=== PATIENT | male | born 1985 | race Hispanic/Latino ===

== ENCOUNTER 2021-02-07 08:23 | Inpatient (IN) | payer SELFPAY ==
[~2021-02-07] VITALS: Ht 162.6 cm; Wt 80.7 kg
[2021-02-07] MEDS ORDERED: SODIUM CHLORIDE 0.9% 1000ML 1,000 ML IV STA (08:50)
[2021-02-07] MEDS ORDERED: ZINC SULFATE 50 MG CAP PO SCH (09:00)
[2021-02-07] MEDS ORDERED: DEXAMETHASONE SOD PHOS 10 MG/1 ML VIAL IV SCH (09:00)
[2021-02-07] MEDS ORDERED: ASCORBIC ACID 500 MG TAB PO SCH (09:00)
[2021-02-07] MEDS ORDERED: CEFTRIAXONE 1 GM in SODIUM CHLORIDE 0.9% 50ML 50 ML IV SCH (09:00)
[2021-02-07 09:03] LABS: BASOPHILS % 0.2 % (0.0-1.0); EOSINOPHILS % 0.2 % (0.0-6.0); HEMATOCRIT 44.5 % (38.2-49.6); HEMOGLOBIN 15.4 g/dL (14.0-18.0); LYMPHOCYTES # (AUTO) 0.7 (1.0-3.2); LYMPHOCYTES % 10.8 % (18.0-39.1); MEAN CORPUSCULAR HEMOGLOBIN 29.6 pg (28-32); MEAN CORPUSCULAR HGB CONC 34.6 g/dL (31-35); MEAN CORPUSCULAR VOLUME 85.4 fL (81-99); MONOCYTES # (AUTO) 0.1 (0.2-0.8); MONOCYTES % 2.1 % (4.4-11.3); NEUTROPHILS # (AUTO) 5.3 (2.1-6.9); PLATELET COUNT 337 x10e3/uL (140-360); RED BLOOD COUNT 5.21 x10e6/uL (4.3-5.7); RED CELL DISTRIBUTION WIDTH 11.9 % (11.7-14.4)
[2021-02-07 09:21] LABS: ALBUMIN 3.3 g/dL (3.5-5.0); ALBUMIN/GLOBULIN RATIO 0.7 (0.8-2.0); ANION GAP 19.5 mmol/L (8-16); CALCIUM 9.3 mg/dL (8.4-10.2); CREATININE, SERUM 0.95 mg/dL (0.72-1.25); POTASSIUM 3.5 mmol/L (3.5-5.1)
[2021-02-07] MEDS: DEXAMETHASONE SOD PHOS 10 MG/1 ML VIAL IV SCH (09:56)
[2021-02-07] MEDS ORDERED: SODIUM CHLORIDE 0.9% 50ML 50 ML ONE ×2 (09:56→12:07)
[2021-02-07] MEDS: ZINC SULFATE 50 MG CAP PO SCH (09:56)
[2021-02-07] MEDS: CEFTRIAXONE 1 GM in SODIUM CHLORIDE 0.9% 50ML 50 ML IV SCH (09:56)
[2021-02-07] MEDS: ASCORBIC ACID 500 MG TAB PO SCH ×2 (09:56→18:08)
[2021-02-07 10:03] LABS: CREATINE KINASE MB 0.6 ng/mL (0-5.0)
[2021-02-07] MEDS ORDERED: DOCUSATE SODIUM 100 MG CAP PO PRN (11:45)
[2021-02-07] MEDS ORDERED: GUAIFENESIN/DEXTROMETHORPHAN LIQD 5 ML UDC NG PRN (11:45)
[2021-02-07] MEDS ORDERED: REMDESIVIR 200MG 200 MG IV ONE (12:00)
[2021-02-07] MEDS ORDERED: IOPAMIDOL 370 MG/ML 200 ML INFUS..BTL INJ ONE (12:07)
[2021-02-07 12:31] LABS: CHOL/HDL RATIO 5.4 (3.9-4.7)
[2021-02-07] MEDS ORDERED: CASIRIVIMAB/IMDEVIMAB 10 ML in SODIUM CHLORIDE 0.9% 100 ML IV ONE (13:30)
[2021-02-07] MEDS: ENOXAPARIN SOD INJ 40 MG/0.4 ML SYR SC SCH (18:08)
[2021-02-07] MEDS: BENZONATATE 100 MG CAP PO SCH ×2 (18:08→21:28)
[2021-02-07] MEDS ORDERED: ZOLPIDEM TARTRATE 5 MG TAB PO PRN (21:00)
[2021-02-08 05:42] LABS: BASOPHILS % 0.1 % (0.0-1.0); HEMATOCRIT 39.2 % (38.2-49.6); HEMOGLOBIN 13.7 g/dL (14.0-18.0); LYMPHOCYTES # (AUTO) 0.7 (1.0-3.2); LYMPHOCYTES % 8.4 % (18.0-39.1); MEAN CORPUSCULAR HGB CONC 34.9 g/dL (31-35); MONOCYTES # (AUTO) 0.4 (0.2-0.8); MONOCYTES % 4.2 % (4.4-11.3); NEUTROPHILS # (AUTO) 7.4 (2.1-6.9); NEUTROPHILS % 86.5 % (38.7-80.0); PLATELET COUNT 335 x10e3/uL (140-360); RED BLOOD COUNT 4.56 x10e6/uL (4.3-5.7); RED CELL DISTRIBUTION WIDTH 11.9 % (11.7-14.4)
[2021-02-08 06:24] LABS: ALBUMIN 2.9 g/dL (3.5-5.0); ALBUMIN/GLOBULIN RATIO 0.7 (0.8-2.0); ANION GAP 17.1 mmol/L (8-16); CALCIUM 9.1 mg/dL (8.4-10.2); CREATININE, SERUM 0.8 mg/dL (0.72-1.25); POTASSIUM 4.1 mmol/L (3.5-5.1)
[2021-02-08] MEDS: ZINC SULFATE 50 MG CAP PO SCH (09:12)
[2021-02-08] MEDS: ASCORBIC ACID 500 MG TAB PO SCH ×2 (09:12→17:02)
[2021-02-08] MEDS: DEXAMETHASONE SOD PHOS 10 MG/1 ML VIAL IV SCH (09:12)
[2021-02-08] MEDS: BENZONATATE 100 MG CAP PO SCH ×3 (09:12→20:35)
[2021-02-08] MEDS: CEFTRIAXONE 1 GM in SODIUM CHLORIDE 0.9% 50ML 50 ML IV SCH (09:12)
[2021-02-08] MEDS: LORATADINE 10 MG TAB PO SCH (09:12)
[2021-02-08] MEDS ORDERED: REMDESIVIR 100MG 100 MG IV SCH (12:00)
[2021-02-08] MEDS: REMDESIVIR 100MG 100 MG IV SCH (14:18)
[2021-02-08] MEDS: ENOXAPARIN SOD INJ 40 MG/0.4 ML SYR SC SCH (17:02)
[2021-02-09] MEDS: DEXAMETHASONE SOD PHOS 10 MG/1 ML VIAL IV SCH (09:58)
[2021-02-09] MEDS: LORATADINE 10 MG TAB PO SCH (09:58)
[2021-02-09] MEDS: CEFTRIAXONE 1 GM in SODIUM CHLORIDE 0.9% 50ML 50 ML IV SCH (09:58)
[2021-02-09] MEDS: BENZONATATE 100 MG CAP PO SCH ×3 (09:58→21:00)
[2021-02-09] MEDS: ASCORBIC ACID 500 MG TAB PO SCH ×2 (09:58→18:14)
[2021-02-09] MEDS: ZINC SULFATE 50 MG CAP PO SCH (09:58)
[2021-02-09] MEDS: REMDESIVIR 100MG 100 MG IV SCH (14:36)
[2021-02-09] MEDS: ENOXAPARIN SOD INJ 40 MG/0.4 ML SYR SC SCH (18:14)
[2021-02-10] VITALS (9 sets, daily range): BP systolic 130–160; BP diastolic 84–112
[2021-02-10 06:40] LABS: BASOPHILS % 0.3 % (0.0-1.0); EOSINOPHILS # (AUTO) 0.1 (0.0-0.4); EOSINOPHILS % 0.7 % (0.0-6.0); HEMATOCRIT 39.3 % (38.2-49.6); HEMOGLOBIN 13.8 g/dL (14.0-18.0); LYMPHOCYTES # (AUTO) 0.5 (1.0-3.2); MEAN CORPUSCULAR HEMOGLOBIN 29.9 pg (28-32); MEAN CORPUSCULAR HGB CONC 35.1 g/dL (31-35); MEAN CORPUSCULAR VOLUME 85.2 fL (81-99); MONOCYTES # (AUTO) 0.4 (0.2-0.8); MONOCYTES % 4.2 % (4.4-11.3); NEUTROPHILS # (AUTO) 8.8 (2.1-6.9); NEUTROPHILS % 86.8 % (38.7-80.0); PLATELET COUNT 434 x10e3/uL (140-360); RED BLOOD COUNT 4.61 x10e6/uL (4.3-5.7); RED CELL DISTRIBUTION WIDTH 11.9 % (11.7-14.4)
[2021-02-10 06:59] LABS: ALBUMIN/GLOBULIN RATIO 0.8 (0.8-2.0); ANION GAP 16.9 mmol/L (8-16); CALCIUM 8.7 mg/dL (8.4-10.2); CREATININE, SERUM 0.7 mg/dL (0.72-1.25); POTASSIUM 3.9 mmol/L (3.5-5.1)
[2021-02-10] MEDS: ASCORBIC ACID 500 MG TAB PO SCH ×2 (08:47→16:49)
[2021-02-10] MEDS: DEXAMETHASONE SOD PHOS 10 MG/1 ML VIAL IV SCH (08:47)
[2021-02-10] MEDS: LORATADINE 10 MG TAB PO SCH (08:47)
[2021-02-10] MEDS: ZINC SULFATE 50 MG CAP PO SCH (08:47)
[2021-02-10] MEDS: BENZONATATE 100 MG CAP PO SCH ×4 (09:00→20:47)
[2021-02-10] MEDS: CEFTRIAXONE 1 GM in SODIUM CHLORIDE 0.9% 50ML 50 ML IV SCH (09:36)
[2021-02-10] MEDS: REMDESIVIR 100MG 100 MG IV SCH (14:08)
[2021-02-10] MEDS: ENOXAPARIN SOD INJ 40 MG/0.4 ML SYR SC SCH (16:49)
[2021-02-11] VITALS (22 sets, daily range): BP systolic 113–159; BP diastolic 70–129
[2021-02-11 07:17] LABS: BASOPHILS % 0.2 % (0.0-1.0); EOSINOPHILS # (AUTO) 0.1 (0.0-0.4); EOSINOPHILS % 1.3 % (0.0-6.0); HEMATOCRIT 38.5 % (38.2-49.6); HEMOGLOBIN 13.4 g/dL (14.0-18.0); LYMPHOCYTES # (AUTO) 0.5 (1.0-3.2); LYMPHOCYTES % 5.1 % (18.0-39.1); MEAN CORPUSCULAR HEMOGLOBIN 29.9 pg (28-32); MEAN CORPUSCULAR HGB CONC 34.8 g/dL (31-35); MEAN CORPUSCULAR VOLUME 85.9 fL (81-99); MONOCYTES # (AUTO) 0.7 (0.2-0.8); MONOCYTES % 6.5 % (4.4-11.3); NEUTROPHILS # (AUTO) 8.9 (2.1-6.9); NEUTROPHILS % 84.2 % (38.7-80.0); PLATELET COUNT 396 x10e3/uL (140-360); RED BLOOD COUNT 4.48 x10e6/uL (4.3-5.7); RED CELL DISTRIBUTION WIDTH 11.9 % (11.7-14.4)
[2021-02-11 08:00] LABS: ALBUMIN/GLOBULIN RATIO 0.8 (0.8-2.0); ANION GAP 17.3 mmol/L (8-16); CALCIUM 8.8 mg/dL (8.4-10.2); CREATININE, SERUM 0.63 mg/dL (0.72-1.25); POTASSIUM 4.3 mmol/L (3.5-5.1)
[2021-02-11] MEDS: ASCORBIC ACID 500 MG TAB PO SCH ×2 (08:11→16:34)
[2021-02-11] MEDS: LORATADINE 10 MG TAB PO SCH (08:11)
[2021-02-11] MEDS: DEXAMETHASONE SOD PHOS 10 MG/1 ML VIAL IV SCH (08:11)
[2021-02-11] MEDS: ZINC SULFATE 50 MG CAP PO SCH (08:11)
[2021-02-11] MEDS: BENZONATATE 100 MG CAP PO SCH ×3 (08:11→20:16)
[2021-02-11] MEDS: CEFTRIAXONE 1 GM in SODIUM CHLORIDE 0.9% 50ML 50 ML IV SCH (10:15)
[2021-02-11] MEDS: REMDESIVIR 100MG 100 MG IV SCH (14:12)
[2021-02-11] MEDS: ENOXAPARIN SOD INJ 40 MG/0.4 ML SYR SC SCH (16:34)
[2021-02-12] VITALS (24 sets, daily range): BP systolic 122–158; BP diastolic 74–109
[2021-02-12 06:36] LABS: BASOPHILS % 0.4 % (0.0-1.0); EOSINOPHILS # (AUTO) 0.1 (0.0-0.4); HEMATOCRIT 39.6 % (38.2-49.6); HEMOGLOBIN 13.4 g/dL (14.0-18.0); LYMPHOCYTES # (AUTO) 0.8 (1.0-3.2); MEAN CORPUSCULAR HEMOGLOBIN 29.5 pg (28-32); MEAN CORPUSCULAR HGB CONC 33.8 g/dL (31-35); MONOCYTES # (AUTO) 0.9 (0.2-0.8); MONOCYTES % 7.8 % (4.4-11.3); NEUTROPHILS # (AUTO) 9.1 (2.1-6.9); NEUTROPHILS % 80.1 % (38.7-80.0); PLATELET COUNT 430 x10e3/uL (140-360); RED BLOOD COUNT 4.55 x10e6/uL (4.3-5.7); RED CELL DISTRIBUTION WIDTH 12.1 % (11.7-14.4)
[2021-02-12 06:58] LABS: ALBUMIN 2.9 g/dL (3.5-5.0); ALBUMIN/GLOBULIN RATIO 0.8 (0.8-2.0); ANION GAP 16.5 mmol/L (8-16); CALCIUM 8.9 mg/dL (8.4-10.2); CREATININE, SERUM 0.63 mg/dL (0.72-1.25); POTASSIUM 4.5 mmol/L (3.5-5.1)
[2021-02-12] MEDS: LORATADINE 10 MG TAB PO SCH (08:13)
[2021-02-12] MEDS: ZINC SULFATE 50 MG CAP PO SCH (08:13)
[2021-02-12] MEDS: ASCORBIC ACID 500 MG TAB PO SCH ×2 (08:13→16:14)
[2021-02-12] MEDS: BENZONATATE 100 MG CAP PO SCH ×3 (08:13→20:22)
[2021-02-12] MEDS: DEXAMETHASONE SOD PHOS 10 MG/1 ML VIAL IV SCH (08:18)
[2021-02-12] MEDS: CEFTRIAXONE 1 GM in SODIUM CHLORIDE 0.9% 50ML 50 ML IV SCH (09:47)
[2021-02-12] MEDS: ENOXAPARIN SOD INJ 40 MG/0.4 ML SYR SC SCH (16:14)
[2021-02-13] VITALS (23 sets, daily range): BP systolic 127–158; BP diastolic 75–108
[2021-02-13 05:00] LABS: BASOPHILS # (AUTO) 0.1 (0.0-0.1); BASOPHILS % 0.5 % (0.0-1.0); EOSINOPHILS # (AUTO) 0.1 (0.0-0.4); EOSINOPHILS % 0.6 % (0.0-6.0); HEMATOCRIT 41.2 % (38.2-49.6); HEMOGLOBIN 14.3 g/dL (14.0-18.0); LYMPHOCYTES % 6.7 % (18.0-39.1); MEAN CORPUSCULAR HEMOGLOBIN 30.1 pg (28-32); MEAN CORPUSCULAR HGB CONC 34.7 g/dL (31-35); MEAN CORPUSCULAR VOLUME 86.7 fL (81-99); MONOCYTES # (AUTO) 1.4 (0.2-0.8); MONOCYTES % 8.8 % (4.4-11.3); NEUTROPHILS # (AUTO) 12.5 (2.1-6.9); NEUTROPHILS % 80.4 % (38.7-80.0); PLATELET COUNT 474 x10e3/uL (140-360); RED BLOOD COUNT 4.75 x10e6/uL (4.3-5.7)
[2021-02-13 05:27] LABS: ALBUMIN 3.1 g/dL (3.5-5.0); ALBUMIN/GLOBULIN RATIO 0.8 (0.8-2.0); ANION GAP 14.6 mmol/L (8-16); CALCIUM 8.9 mg/dL (8.4-10.2); CREATININE, SERUM 0.69 mg/dL (0.72-1.25); POTASSIUM 4.6 mmol/L (3.5-5.1)
[2021-02-13] MEDS: LORATADINE 10 MG TAB PO SCH (08:20)
[2021-02-13] MEDS: BENZONATATE 100 MG CAP PO SCH ×3 (08:20→21:37)
[2021-02-13] MEDS: ASCORBIC ACID 500 MG TAB PO SCH ×2 (08:20→16:35)
[2021-02-13] MEDS: ZINC SULFATE 50 MG CAP PO SCH (08:20)
[2021-02-13] MEDS: DEXAMETHASONE SOD PHOS 10 MG/1 ML VIAL IV SCH (09:17)
[2021-02-13] MEDS: CEFTRIAXONE 1 GM in SODIUM CHLORIDE 0.9% 50ML 50 ML IV SCH (09:58)
[2021-02-13] MEDS: ENOXAPARIN SOD INJ 40 MG/0.4 ML SYR SC SCH (16:35)
[2021-02-14] VITALS (7 sets, daily range): BP systolic 120–145; BP diastolic 77–94
[2021-02-14 05:55] LABS: BASOPHILS # (AUTO) 0.1 (0.0-0.1); BASOPHILS % 0.4 % (0.0-1.0); EOSINOPHILS # (AUTO) 0.1 (0.0-0.4); EOSINOPHILS % 0.8 % (0.0-6.0); HEMOGLOBIN 15.3 g/dL (14.0-18.0); LYMPHOCYTES # (AUTO) 1.5 (1.0-3.2); LYMPHOCYTES % 10.4 % (18.0-39.1); MEAN CORPUSCULAR HEMOGLOBIN 30.2 pg (28-32); MEAN CORPUSCULAR HGB CONC 34.8 g/dL (31-35); MEAN CORPUSCULAR VOLUME 86.8 fL (81-99); MONOCYTES # (AUTO) 1.4 (0.2-0.8); MONOCYTES % 10.3 % (4.4-11.3); NEUTROPHILS # (AUTO) 10.4 (2.1-6.9); NEUTROPHILS % 74.2 % (38.7-80.0); PLATELET COUNT 462 x10e3/uL (140-360); RED BLOOD COUNT 5.07 x10e6/uL (4.3-5.7)
[2021-02-14 06:21] LABS: ALBUMIN 3.1 g/dL (3.5-5.0); ALBUMIN/GLOBULIN RATIO 0.7 (0.8-2.0); ANION GAP 15.9 mmol/L (8-16); CALCIUM 9.7 mg/dL (8.4-10.2); CREATININE, SERUM 0.66 mg/dL (0.72-1.25); POTASSIUM 4.9 mmol/L (3.5-5.1)
[2021-02-14] MEDS: LORATADINE 10 MG TAB PO SCH (08:51)
[2021-02-14] MEDS: ZINC SULFATE 50 MG CAP PO SCH (08:51)
[2021-02-14] MEDS: DEXAMETHASONE SOD PHOS 10 MG/1 ML VIAL IV SCH (08:51)
[2021-02-14] MEDS: ASCORBIC ACID 500 MG TAB PO SCH ×2 (08:51→17:18)
[2021-02-14] MEDS: BENZONATATE 100 MG CAP PO SCH ×3 (08:51→20:34)
[2021-02-14] MEDS: CEFTRIAXONE 1 GM in SODIUM CHLORIDE 0.9% 50ML 50 ML IV SCH (09:24)
[2021-02-15] VITALS (8 sets, daily range): BP systolic 130–142; BP diastolic 90–97
[2021-02-15] MEDS: ZINC SULFATE 50 MG CAP PO SCH (08:52)
[2021-02-15] MEDS: BENZONATATE 100 MG CAP PO SCH ×3 (08:52→20:12)
[2021-02-15] MEDS: LORATADINE 10 MG TAB PO SCH (08:52)
[2021-02-15] MEDS: ASCORBIC ACID 500 MG TAB PO SCH ×2 (08:52→16:34)
[2021-02-15] MEDS ORDERED: DEXAMETHASONE SOD PHOS 10 MG/1 ML VIAL IV SCH (12:30)
[2021-02-15] MEDS ORDERED: ENOXAPARIN SOD INJ 40 MG/0.4 ML SYR SC SCH (13:00)
[2021-02-15] MEDS: DEXAMETHASONE SOD PHOS 10 MG/1 ML VIAL IV SCH (16:34)
[2021-02-15] MEDS: ENOXAPARIN SOD INJ 40 MG/0.4 ML SYR SC SCH (16:34)
[2021-02-16] VITALS (9 sets, daily range): BP systolic 129–146; BP diastolic 93–104
[2021-02-16] MEDS: ZINC SULFATE 50 MG CAP PO SCH (08:49)
[2021-02-16] MEDS: ENOXAPARIN SOD INJ 40 MG/0.4 ML SYR SC SCH (08:49)
[2021-02-16] MEDS: ASCORBIC ACID 500 MG TAB PO SCH ×2 (08:49→16:43)
[2021-02-16] MEDS: BENZONATATE 100 MG CAP PO SCH ×3 (08:49→21:03)
[2021-02-16] MEDS: LORATADINE 10 MG TAB PO SCH (08:49)
[2021-02-16] MEDS: DEXAMETHASONE SOD PHOS 10 MG/1 ML VIAL IV SCH (08:49)
[2021-02-16 10:18] LABS: BASOPHILS # (AUTO) 0.1 (0.0-0.1); BASOPHILS % 0.5 % (0.0-1.0); EOSINOPHILS % 0.3 % (0.0-6.0); HEMATOCRIT 46.4 % (38.2-49.6); HEMOGLOBIN 15.8 g/dL (14.0-18.0); LYMPHOCYTES # (AUTO) 1.2 (1.0-3.2); LYMPHOCYTES % 7.7 % (18.0-39.1); MEAN CORPUSCULAR HEMOGLOBIN 29.4 pg (28-32); MEAN CORPUSCULAR HGB CONC 34.1 g/dL (31-35); MEAN CORPUSCULAR VOLUME 86.4 fL (81-99); MONOCYTES # (AUTO) 0.9 (0.2-0.8); MONOCYTES % 5.7 % (4.4-11.3); NEUTROPHILS # (AUTO) 12.9 (2.1-6.9); NEUTROPHILS % 83.4 % (38.7-80.0); PLATELET COUNT 400 x10e3/uL (140-360); RED BLOOD COUNT 5.37 x10e6/uL (4.3-5.7); RED CELL DISTRIBUTION WIDTH 12.3 % (11.7-14.4)
[2021-02-16 10:38] LABS: ANION GAP 15.7 mmol/L (8-16); CALCIUM 9.6 mg/dL (8.4-10.2); CREATININE, SERUM 0.73 mg/dL (0.72-1.25); POTASSIUM 4.7 mmol/L (3.5-5.1)
[2021-02-16] MEDS ORDERED: GUAIFENESIN/DEXTROMETHORPHAN 237 ML SYRUP PO PRN (16:30)
[2021-02-17] VITALS (8 sets, daily range): BP systolic 131–153; BP diastolic 82–104
[2021-02-17] MEDS: ZINC SULFATE 50 MG CAP PO SCH (08:48)
[2021-02-17] MEDS: ASCORBIC ACID 500 MG TAB PO SCH ×2 (08:48→17:13)
[2021-02-17] MEDS: LORATADINE 10 MG TAB PO SCH (08:48)
[2021-02-17] MEDS: DEXAMETHASONE SOD PHOS 10 MG/1 ML VIAL IV SCH (08:48)
[2021-02-17] MEDS: BENZONATATE 100 MG CAP PO SCH ×3 (08:48→20:04)
[2021-02-17] MEDS: ENOXAPARIN SOD INJ 40 MG/0.4 ML SYR SC SCH (08:48)
[2021-02-17] MEDS ORDERED: METOPROLOL SUCCINATE 25 MG TAB XL PO ONE (20:15)
[2021-02-18] VITALS (7 sets, daily range): BP systolic 126–138; BP diastolic 94–97
[2021-02-18 06:31] LABS: BASOPHILS % 0.3 % (0.0-1.0); EOSINOPHILS # (AUTO) 0.1 (0.0-0.4); EOSINOPHILS % 0.9 % (0.0-6.0); HEMATOCRIT 43.4 % (38.2-49.6); LYMPHOCYTES # (AUTO) 1.7 (1.0-3.2); LYMPHOCYTES % 12.7 % (18.0-39.1); MEAN CORPUSCULAR HEMOGLOBIN 29.6 pg (28-32); MEAN CORPUSCULAR HGB CONC 34.6 g/dL (31-35); MEAN CORPUSCULAR VOLUME 85.8 fL (81-99); MONOCYTES # (AUTO) 1.2 (0.2-0.8); MONOCYTES % 9.2 % (4.4-11.3); NEUTROPHILS % 74.2 % (38.7-80.0); PLATELET COUNT 344 x10e3/uL (140-360); RED BLOOD COUNT 5.06 x10e6/uL (4.3-5.7)
[2021-02-18 06:49] LABS: ALBUMIN 2.7 g/dL (3.5-5.0); ALBUMIN/GLOBULIN RATIO 0.6 (0.8-2.0); ANION GAP 17.3 mmol/L (8-16); CALCIUM 9.4 mg/dL (8.4-10.2); CREATININE, SERUM 0.72 mg/dL (0.72-1.25); POTASSIUM 4.3 mmol/L (3.5-5.1)
[2021-02-18] MEDS: DEXAMETHASONE SOD PHOS 10 MG/1 ML VIAL IV SCH (09:03)
[2021-02-18] MEDS: BENZONATATE 100 MG CAP PO SCH ×3 (09:03→21:46)
[2021-02-18] MEDS: LORATADINE 10 MG TAB PO SCH (09:03)
[2021-02-18] MEDS: ZINC SULFATE 50 MG CAP PO SCH (09:04)
[2021-02-18] MEDS: ASCORBIC ACID 500 MG TAB PO SCH ×2 (09:04→17:04)
[2021-02-18] MEDS: ENOXAPARIN SOD INJ 40 MG/0.4 ML SYR SC SCH (09:04)
[2021-02-18] MEDS: METOPROLOL SUCCINATE 25 MG TAB XL PO SCH (09:04)
[2021-02-19] VITALS (8 sets, daily range): BP systolic 132–144; BP diastolic 92–100
[2021-02-19 05:38] LABS: BASOPHILS % 0.2 % (0.0-1.0); EOSINOPHILS # (AUTO) 0.3 (0.0-0.4); EOSINOPHILS % 2.1 % (0.0-6.0); HEMATOCRIT 44.1 % (38.2-49.6); HEMOGLOBIN 15.3 g/dL (14.0-18.0); MEAN CORPUSCULAR HEMOGLOBIN 29.7 pg (28-32); MEAN CORPUSCULAR HGB CONC 34.7 g/dL (31-35); MEAN CORPUSCULAR VOLUME 85.6 fL (81-99); MONOCYTES # (AUTO) 1.3 (0.2-0.8); MONOCYTES % 9.7 % (4.4-11.3); NEUTROPHILS # (AUTO) 9.3 (2.1-6.9); NEUTROPHILS % 70.6 % (38.7-80.0); PLATELET COUNT 295 x10e3/uL (140-360); RED BLOOD COUNT 5.15 x10e6/uL (4.3-5.7); RED CELL DISTRIBUTION WIDTH 11.9 % (11.7-14.4)
[2021-02-19 06:09] LABS: ANION GAP 15.3 mmol/L (8-16); CALCIUM 9.4 mg/dL (8.4-10.2); CREATININE, SERUM 0.73 mg/dL (0.72-1.25); POTASSIUM 4.3 mmol/L (3.5-5.1)
[2021-02-19] MEDS: ZINC SULFATE 50 MG CAP PO SCH (08:54)
[2021-02-19] MEDS: DEXAMETHASONE SOD PHOS 10 MG/1 ML VIAL IV SCH (08:54)
[2021-02-19] MEDS: METOPROLOL SUCCINATE 25 MG TAB XL PO SCH (08:54)
[2021-02-19] MEDS: LORATADINE 10 MG TAB PO SCH (08:54)
[2021-02-19] MEDS: ENOXAPARIN SOD INJ 40 MG/0.4 ML SYR SC SCH (08:54)
[2021-02-19] MEDS: ASCORBIC ACID 500 MG TAB PO SCH ×2 (08:54→16:15)
[2021-02-19] MEDS: BENZONATATE 100 MG CAP PO SCH ×3 (08:54→21:00)
[2021-02-20] VITALS (10 sets, daily range): BP systolic 111–142; BP diastolic 92–99
[2021-02-20 05:13] LABS: BASOPHILS % 0.2 % (0.0-1.0); EOSINOPHILS # (AUTO) 0.2 (0.0-0.4); EOSINOPHILS % 1.4 % (0.0-6.0); HEMATOCRIT 45.7 % (38.2-49.6); HEMOGLOBIN 15.8 g/dL (14.0-18.0); LYMPHOCYTES # (AUTO) 2.3 (1.0-3.2); LYMPHOCYTES % 13.2 % (18.0-39.1); MEAN CORPUSCULAR HEMOGLOBIN 29.8 pg (28-32); MEAN CORPUSCULAR HGB CONC 34.6 g/dL (31-35); MEAN CORPUSCULAR VOLUME 86.1 fL (81-99); MONOCYTES # (AUTO) 1.7 (0.2-0.8); MONOCYTES % 9.6 % (4.4-11.3); NEUTROPHILS # (AUTO) 12.8 (2.1-6.9); NEUTROPHILS % 73.8 % (38.7-80.0); PLATELET COUNT 300 x10e3/uL (140-360); RED BLOOD COUNT 5.31 x10e6/uL (4.3-5.7)
[2021-02-20 05:44] LABS: ANION GAP 17.2 mmol/L (8-16); CALCIUM 9.5 mg/dL (8.4-10.2); CREATININE, SERUM 0.82 mg/dL (0.72-1.25); POTASSIUM 4.2 mmol/L (3.5-5.1)
[2021-02-20] MEDS: LORATADINE 10 MG TAB PO SCH (09:00)
[2021-02-20] MEDS: DEXAMETHASONE SOD PHOS 10 MG/1 ML VIAL IV SCH (09:00)
[2021-02-20] MEDS: ZINC SULFATE 50 MG CAP PO SCH (09:00)
[2021-02-20] MEDS: METOPROLOL SUCCINATE 25 MG TAB XL PO SCH (09:00)
[2021-02-20] MEDS: BENZONATATE 100 MG CAP PO SCH ×3 (09:00→21:10)
[2021-02-20] MEDS: ASCORBIC ACID 500 MG TAB PO SCH ×2 (09:00→16:42)
[2021-02-20] MEDS: ENOXAPARIN SOD INJ 40 MG/0.4 ML SYR SC SCH (09:00)
[2021-02-21] VITALS (8 sets, daily range): BP systolic 128–158; BP diastolic 90–109
[2021-02-21] MEDS: BENZONATATE 100 MG CAP PO SCH ×3 (09:00→20:00)
[2021-02-21] MEDS: LORATADINE 10 MG TAB PO SCH (09:00)
[2021-02-21] MEDS: ENOXAPARIN SOD INJ 40 MG/0.4 ML SYR SC SCH (09:00)
[2021-02-21] MEDS: DEXAMETHASONE SOD PHOS 10 MG/1 ML VIAL IV SCH (09:00)
[2021-02-21] MEDS: METOPROLOL SUCCINATE 25 MG TAB XL PO SCH (09:00)
[2021-02-21] MEDS: ASCORBIC ACID 500 MG TAB PO SCH ×2 (09:00→17:00)
[2021-02-21] MEDS: ZINC SULFATE 50 MG CAP PO SCH (09:00)
[2021-02-21] MEDS ORDERED: FUROSEMIDE INJ 10 MG/ML 2 ML VIAL IV ONE (16:00)
[2021-02-21] MEDS: PIPERACILLIN/TAZOBACTAM 3.375 GM in SODIUM CHLORIDE 0.9% 50ML 50 ML IV SCH (18:00)
[2021-02-22] VITALS (8 sets, daily range): BP systolic 129–135; BP diastolic 96–107
[2021-02-22] MEDS: PIPERACILLIN/TAZOBACTAM 3.375 GM in SODIUM CHLORIDE 0.9% 50ML 50 ML IV SCH ×3 (01:20→16:41)
[2021-02-22 07:25] LABS: BASOPHILS # (AUTO) 0.1 (0.0-0.1); BASOPHILS % 0.5 % (0.0-1.0); EOSINOPHILS # (AUTO) 0.2 (0.0-0.4); EOSINOPHILS % 1.6 % (0.0-6.0); HEMOGLOBIN 16.1 g/dL (14.0-18.0); LYMPHOCYTES # (AUTO) 2.1 (1.0-3.2); LYMPHOCYTES % 18.6 % (18.0-39.1); MEAN CORPUSCULAR HEMOGLOBIN 29.5 pg (28-32); MEAN CORPUSCULAR HGB CONC 33.5 g/dL (31-35); MEAN CORPUSCULAR VOLUME 88.1 fL (81-99); MONOCYTES # (AUTO) 1.1 (0.2-0.8); MONOCYTES % 10.1 % (4.4-11.3); NEUTROPHILS # (AUTO) 7.6 (2.1-6.9); NEUTROPHILS % 67.3 % (38.7-80.0); PLATELET COUNT 305 x10e3/uL (140-360); RED BLOOD COUNT 5.45 x10e6/uL (4.3-5.7); RED CELL DISTRIBUTION WIDTH 12.1 % (11.7-14.4)
[2021-02-22 07:46] LABS: ANION GAP 19.5 mmol/L (8-16); CALCIUM 9.9 mg/dL (8.4-10.2); CREATININE, SERUM 1.08 mg/dL (0.72-1.25); POTASSIUM 4.5 mmol/L (3.5-5.1)
[2021-02-22] MEDS: DEXAMETHASONE SOD PHOS 10 MG/1 ML VIAL IV SCH (09:37)
[2021-02-22] MEDS: BENZONATATE 100 MG CAP PO SCH ×3 (09:38→20:35)
[2021-02-22] MEDS: ZINC SULFATE 50 MG CAP PO SCH (09:38)
[2021-02-22] MEDS: ENOXAPARIN SOD INJ 40 MG/0.4 ML SYR SC SCH (09:38)
[2021-02-22] MEDS: LORATADINE 10 MG TAB PO SCH (09:38)
[2021-02-22] MEDS: ASCORBIC ACID 500 MG TAB PO SCH ×2 (09:38→15:40)
[2021-02-22] MEDS: METOPROLOL SUCCINATE 25 MG TAB XL PO SCH (09:38)
[2021-02-23] VITALS (7 sets, daily range): BP systolic 127–136; BP diastolic 65–101
[2021-02-23] MEDS: PIPERACILLIN/TAZOBACTAM 3.375 GM in SODIUM CHLORIDE 0.9% 50ML 50 ML IV SCH ×3 (00:49→16:37)
[2021-02-23] MEDS: ZINC SULFATE 50 MG CAP PO SCH (08:36)
[2021-02-23] MEDS: ASCORBIC ACID 500 MG TAB PO SCH ×2 (08:38→16:37)
[2021-02-23] MEDS: BENZONATATE 100 MG CAP PO SCH ×3 (08:38→22:03)
[2021-02-23] MEDS: LORATADINE 10 MG TAB PO SCH (08:38)
[2021-02-23] MEDS: METOPROLOL SUCCINATE 25 MG TAB XL PO SCH (08:39)
[2021-02-23] MEDS: METOPROLOL TARTRATE 50 MG TAB PO SCH (22:03)
[2021-02-24] VITALS (9 sets, daily range): BP systolic 121–133; BP diastolic 88–94
[2021-02-24] MEDS: PIPERACILLIN/TAZOBACTAM 3.375 GM in SODIUM CHLORIDE 0.9% 50ML 50 ML IV SCH ×3 (01:52→16:56)
[2021-02-24] MEDS: ZINC SULFATE 50 MG CAP PO SCH (09:32)
[2021-02-24] MEDS: LORATADINE 10 MG TAB PO SCH (09:33)
[2021-02-24] MEDS: BENZONATATE 100 MG CAP PO SCH ×3 (09:33→21:40)
[2021-02-24] MEDS: ASCORBIC ACID 500 MG TAB PO SCH ×2 (09:33→16:56)
[2021-02-24] MEDS: METOPROLOL TARTRATE 50 MG TAB PO SCH ×2 (09:33→16:56)
[2021-02-25] VITALS (8 sets, daily range): BP systolic 122–133; BP diastolic 88–97
[2021-02-25] MEDS: PIPERACILLIN/TAZOBACTAM 3.375 GM in SODIUM CHLORIDE 0.9% 50ML 50 ML IV SCH ×3 (02:29→17:19)
[2021-02-25] MEDS: LORATADINE 10 MG TAB PO SCH (08:30)
[2021-02-25] MEDS: METOPROLOL TARTRATE 50 MG TAB PO SCH ×2 (08:31→17:20)
[2021-02-25] MEDS: BENZONATATE 100 MG CAP PO SCH ×3 (08:31→21:00)
[2021-02-25] MEDS: ASCORBIC ACID 500 MG TAB PO SCH ×2 (08:31→17:20)
[2021-02-25] MEDS: ZINC SULFATE 50 MG CAP PO SCH (08:31)
[2021-02-25 10:37] LABS: BASOPHILS % 0.3 % (0.0-1.0); EOSINOPHILS # (AUTO) 0.4 (0.0-0.4); EOSINOPHILS % 3.4 % (0.0-6.0); HEMATOCRIT 46.7 % (38.2-49.6); HEMOGLOBIN 15.6 g/dL (14.0-18.0); LYMPHOCYTES % 9.6 % (18.0-39.1); MEAN CORPUSCULAR HEMOGLOBIN 29.8 pg (28-32); MEAN CORPUSCULAR HGB CONC 33.4 g/dL (31-35); MEAN CORPUSCULAR VOLUME 89.1 fL (81-99); MONOCYTES # (AUTO) 0.7 (0.2-0.8); MONOCYTES % 6.8 % (4.4-11.3); NEUTROPHILS # (AUTO) 8.2 (2.1-6.9); NEUTROPHILS % 78.5 % (38.7-80.0); PLATELET COUNT 246 x10e3/uL (140-360); RED BLOOD COUNT 5.24 x10e6/uL (4.3-5.7); RED CELL DISTRIBUTION WIDTH 12.2 % (11.7-14.4)
[2021-02-25 11:00] LABS: ANION GAP 16.1 mmol/L (8-16); CALCIUM 9.1 mg/dL (8.4-10.2); CREATININE, SERUM 0.83 mg/dL (0.72-1.25); POTASSIUM 4.1 mmol/L (3.5-5.1)
[2021-02-25] MEDS: ENOXAPARIN SOD INJ 40 MG/0.4 ML SYR SC SCH (17:20)
[2021-02-26] VITALS (8 sets, daily range): BP systolic 126–139; BP diastolic 75–92
[2021-02-26] MEDS: PIPERACILLIN/TAZOBACTAM 3.375 GM in SODIUM CHLORIDE 0.9% 50ML 50 ML IV SCH ×3 (01:00→16:34)
[2021-02-26] MEDS: LORATADINE 10 MG TAB PO SCH (09:13)
[2021-02-26] MEDS: ASCORBIC ACID 500 MG TAB PO SCH ×2 (09:14→16:35)
[2021-02-26] MEDS: ZINC SULFATE 50 MG CAP PO SCH (09:14)
[2021-02-26] MEDS: BENZONATATE 100 MG CAP PO SCH ×3 (09:14→21:00)
[2021-02-26] MEDS: METOPROLOL TARTRATE 50 MG TAB PO SCH ×2 (09:14→16:35)
[2021-02-26] MEDS: ENOXAPARIN SOD INJ 40 MG/0.4 ML SYR SC SCH (16:35)
[2021-02-27] VITALS: BP 127/84
[2021-02-27] MEDS: PIPERACILLIN/TAZOBACTAM 3.375 GM in SODIUM CHLORIDE 0.9% 50ML 50 ML IV SCH ×2 (00:37→08:54)
[2021-02-27 04:00] VITALS: BP 147/99
[2021-02-27 08:54] VITALS: BP 144/101
[2021-02-27] MEDS: ASCORBIC ACID 500 MG TAB PO SCH (08:54)
[2021-02-27] MEDS: ZINC SULFATE 50 MG CAP PO SCH (08:54)
[2021-02-27] MEDS: LORATADINE 10 MG TAB PO SCH (08:54)
[2021-02-27] MEDS: BENZONATATE 100 MG CAP PO SCH ×2 (08:54→14:49)
[2021-02-27] MEDS: METOPROLOL TARTRATE 50 MG TAB PO SCH (08:54)
[2021-02-27 12:04] VITALS: BP 132/97
[2021-02-27 12:07] VITALS: BP 132/97
[2021-02-27] MEDS ORDERED: LORATADINE10 MG PO (14:08)
[2021-02-27] MEDS ORDERED: ASCORBIC ACID500 MG PO (14:08)
[2021-02-27] MEDS ORDERED: Zinc Sulfate PO (14:08)
[2021-02-27] MEDS ORDERED: METOPROLOL TART50 MG PO (14:08)
[2021-02-27] MEDS ORDERED: TESSALON PERLE100 MG PO (14:08)
== END 2021-02-27 17:29 | disposition home or self-care (01) | DRG 871 ==
LOC: ER 08:30 → ERHOLD 11:17 → ICU 02-10 14:45 → IMCU 02-13 19:45 → MED/SURG3 02-18 21:03
PROVIDERS: ADMIT Internal Medicine; ATTEND Internal Medicine
PROC: 8E0ZXY6 Isolation (ICD-10-PCS; principal; 2021-02-08)
PROC: XW033E5 Introduction of Remdesivir Anti-infective into Peripheral Vein, Percutaneous Approach, New Technology Group 5 (ICD-10-PCS; 2021-02-08)
DX: A41.89 Other specified sepsis (principal); U07.1 COVID-19; J12.82 Pneumonia due to coronavirus disease 2019; J96.01 Acute respiratory failure with hypoxia; J69.0 Pneumonitis due to inhalation of food and vomit; B17.8 Other specified acute viral hepatitis; J43.8 Other emphysema; R73.03 Prediabetes; Z99.81 Dependence on supplemental oxygen; R00.0 Tachycardia, unspecified
CPT/HCPCS: 36415; 71045; 71260; 80048; 80053; 80061; 82550; 82553; 82948; 83036; 83735; 83880; 84484; 85025; 86140; 87040; 93005; 96360; 99285; J0456; J0696; J1100; J1650; J1940; J2543; J7030; J7050; Q9967; U0002